=== PATIENT | male | born 1995 | race Caucasian/White ===

== ENCOUNTER 2018-06-30 21:53 | Emergency (ER) | payer OTHER ==
[~2018-06-30] VITALS: Ht 182.9 cm; Wt 72.6 kg
[~2018-06-30 21:53] MED LIST: ALBU90OI6 INH; Bactrim Ds Tab1 EACH PO; CODACEE120 PO; CYCL10 PO; HYDACE5325 PO; IBUP800 PO; Naprosyn500 MG PO; Norco 5-325 Ta1 EACH PO; Prednisone20 MG PO; Zithromax250 MG PO
[2018-06-30] MEDS ORDERED: ONDA4ODT MM (22:29)
[2018-06-30] MEDS ORDERED: Pepto-Bism525 MG/15 PO (22:29)
== END 2018-06-30 22:42 | disposition home or self-care (01) ==
LOC: ER 21:53
DX: K52.9 Noninfective gastroenteritis and colitis, unspecified (principal); Z88.0 Allergy status to penicillin; F17.210 Nicotine dependence, cigarettes, uncomplicated
CPT/HCPCS: 99283

== ENCOUNTER 2021-03-21 05:03 | Emergency (ER) | payer OTHER ==
[~2021-03-21] VITALS: Ht 182.9 cm; Wt 104.3 kg
[~2021-03-21 05:03] MED LIST changes: +ONDA4ODT MM; +Pepto-Bism525 MG/15 PO
[2021-03-21 06:55] LABS: Source, Urine Clean Catch
[2021-03-21 06:59] LABS: Appearance, Urine Clear (Clear); Bilirubin, Urine Neg (Neg); Blood, Urine 5+ (Neg); Color, Urine Yellow (P-Yellow); Glucose Qualitative, Urine Neg (Neg); Ketones, Urine Neg (Neg); Leukocyte Esterase, Urine Neg (Neg); Nitrite, Urine Neg (Neg); Protein, Urine 2+ (Neg); Urobilinogen, Urine NORM (Normal)
[2021-03-21 07:21] LABS: White Blood Cells, Urine 0-2 /hpf (0-5)
[2021-03-21 07:22] LABS: Bacteria Few /hpf; Squamous Epithelial Cells Not Seen /hpf (Few)
[2021-03-21 07:56] LABS: BASOPHILS ABSOLUTE AUTO 0.04 K/mm3 (0.00-0.23); BASOPHILS PERCENT AUTO 1 % (0-2); EOSINOPHILS ABSOLUTE AUTO 0.04 K/mm3 (0.00-0.68); EOSINOPHILS PERCENT AUTO 1 % (0-6); Hematocrit 46.9 % (37.0-53.0); Hemoglobin 16.2 g/dL (13.5-17.5); IMMATURE GRAN ABSOLUTE AUTO 0.05 K/mm3 (0.00-0.10); IMMATURE GRAN PERCENT AUTO 1 % (0-1); LYMPHOCYTES ABSOLUTE AUTO 0.61 K/mm3 (0.84-5.20); LYMPHOCYTES PERCENT AUTO 8 % (21-46); MONOCYTES ABSOLUTE AUTO 0.81 K/mm3 (0.16-1.47); MONOCYTES PERCENT AUTO 11 % (4-13); Mean Corpuscular HGB 30.6 pg (26.0-34.0); Mean Corpuscular HGB Conc 34.5 g/dL (31.5-36.5); Mean Corpuscular Volume 89 fL (80-100); Mean Platelet Volume 10.8 fL (9.1-12.4); NEUTROPHILS ABSOLUTE AUTO 5.86 K/mm3 (1.96-9.15); NEUTROPHILS PERCENT AUTO 79 % (41-73); Platelet Count 206 K/mm3 (150-400); RDW Coefficient Variation 12.2 % (11.7-14.2); RDW Standard Deviation 39.8 fL (35.1-46.3); White Blood Cell Count 7.41 K/mm3 (4.00-11.30)
[2021-03-21 08:15] LABS: Anion Gap 9 mmol/L (6-16); Blood Urea Nitrogen 8 mg/dL (8-24); CO2, Blood 25 mmol/L (21-32); Calcium, Blood 8.7 mg/dL (8.5-10.1); Chloride, Blood 105 mmol/L (98-108); Glomerular Filtration Rate >60 (60-); Glucose, Blood 101 mg/dL (70-99); Sodium, Blood 139 mmol/L (136-145)
[2021-03-21] MEDS ORDERED: Flomax0.4 MG PO (08:56)
[2021-03-22 21:08] LABS: CHLAMYDIA TRACHOMATIS, NAA Negative (Negative)
== END 2021-03-21 09:00 | disposition home or self-care (01) ==
LOC: ER 05:03
PROVIDERS: Emergency Medicine; Family Medicine
DX: N20.2 Calculus of kidney with calculus of ureter (principal); F17.210 Nicotine dependence, cigarettes, uncomplicated
CPT/HCPCS: 74176; 76870; 80048; 81001; 85025; 87086; 87491; 87591; 96374; 96375; 99284-25; A9270; J1885; J2270; J2405; J7030

== ENCOUNTER 2023-04-28 12:54 | Emergency (ER) | payer OTHER ==
[~2023-04-28] VITALS: Ht 182.9 cm; Wt 83.9 kg
[~2023-04-28 12:54] MED LIST changes: +Flomax0.4 MG PO
[2023-04-28 13:08] VITALS: BP 175/105
== END 2023-04-28 14:30 | disposition home or self-care (01) ==
LOC: ER 12:54
DX: S92.012A Displaced fracture of body of left calcaneus, initial encounter for closed fracture (principal); W17.89XA Other fall from one level to another, initial encounter; Z88.0 Allergy status to penicillin; Z88.8 Allergy status to other drugs, medicaments and biological substances; F17.210 Nicotine dependence, cigarettes, uncomplicated
CPT/HCPCS: 29505; 72100; 73630; 99283-25

== ENCOUNTER 2023-09-22 17:04 | Emergency (ER) | payer OTHER ==
[~2023-09-22] VITALS: Ht 182.9 cm; Wt 90.7 kg
[2023-09-22 17:07] VITALS: BP 150/91
[2023-09-22] MEDS ORDERED: EPIPEN0.3 MG/0.3 IM (17:12)
[2023-09-22] MEDS ORDERED: BENADRYL25 MG PO (17:12)
== END 2023-09-22 17:44 | disposition home or self-care (01) ==
LOC: ER 17:04
DX: T63.441A Toxic effect of venom of bees, accidental (unintentional), initial encounter (principal); F17.210 Nicotine dependence, cigarettes, uncomplicated; Z88.0 Allergy status to penicillin; Z88.8 Allergy status to other drugs, medicaments and biological substances
CPT/HCPCS: 99283

== ENCOUNTER 2024-02-12 23:19 | Emergency (ER) | payer OTHER ==
[~2024-02-12] VITALS: Ht 182.9 cm; Wt 86.2 kg
[~2024-02-12 23:19] MED LIST changes: +BENADRYL25 MG PO; +EPIPEN0.3 MG/0.3 IM
[2024-02-12] MEDS ORDERED: MethylPREDNISolone Sod Succ 125 MG Vial IV ONE (23:25)
[2024-02-12] MEDS ORDERED: DiphenhydrAMINE HCl 50 MG/ML 1ML Vial IV ONE (23:25)
[2024-02-13] MEDS ORDERED: LORazepam 2 MG/ML 1ML Injection IV ONE (01:00)
[2024-02-13 02:00] VITALS: BP 116/65
[2024-02-13] MEDS ORDERED: BENADRYL25 M1 PO (02:05)
== END 2024-02-13 02:14 | disposition home or self-care (01) ==
LOC: ER 23:19
DX: T78.03XA Anaphylactic reaction due to other fish, initial encounter (principal); F17.210 Nicotine dependence, cigarettes, uncomplicated; Z88.0 Allergy status to penicillin; Z88.8 Allergy status to other drugs, medicaments and biological substances; Z79.899 Other long term (current) drug therapy; Z91.030 Bee allergy status; Z91.013 Allergy to seafood
CPT/HCPCS: 93005; 93010; 96374; 96375; 99285-25; J1200; J2060; J2919